=== PATIENT | female | born 1970 | race African-American/Black ===

== ENCOUNTER 2016-06-18 10:09 | Emergency (ER) | payer OTHER ==
[~2016-06-18] VITALS: Ht 167.6 cm; Wt 59.0 kg
[~2016-06-18 10:09] MED LIST: COLACE100 MG PO; HUMALOG100 UNIT/1 SUBQ; IRON325 PO; LANTUS SUBQ; UNICOMPLEX M TA1 TA1 PO
[2016-06-18] MEDS ORDERED: NOVOLOG100 UNIT/1 SUBQ (10:19)
[2016-06-18] MEDS ORDERED: LANTUS SUBQ (10:19)
[2016-06-18 11:03] LABS: ABSOLUTE NEUTROPHILS 2.7 thou/uL (1.4-8.2); BASOPHILS 0.9 % (0.0-2.0); HEMATOCRIT 30.7 % (37.0-47.0); HEMOGLOBIN 9.7 gm/dL (12.0-15.0); LYMPHOCYTES 20.8 % (24.0-44.0); MCH 26.3 pg (26.0-34.0); MCHC 31.6 g/dL (28.0-37.0); MCV 83.3 fL (80.0-100.0); MONOCYTES 5.4 % (1.0-8.0); PLATELET COUNT 306 thou/uL (150-400); POLYS 71.9 % (36.0-66.0); RBC 3.68 mil/uL (4.20-5.00); RDW 16.2 % (10.5-14.5); WBC 3.8 thou/uL (4.0-11.0)
[2016-06-18 11:05] LABS: MANUAL DIFF NO
[2016-06-18 11:17] LABS: CALCIUM 8.9 mg/dL (8.5-10.1); CREATININE 1.4 mg/dL (0.6-1.0)
== END 2016-06-18 14:16 | disposition home or self-care (01) ==
LOC: ER 10:09
PROVIDERS: Emergency Medicine
DX: E11.65 Type 2 diabetes mellitus with hyperglycemia (principal); Z79.4 Long term (current) use of insulin

== ENCOUNTER 2016-10-10 23:22 | Emergency (ER) | payer OTHER ==
[~2016-10-10] VITALS: Ht 170.2 cm; Wt 67.6 kg
[~2016-10-10 23:22] MED LIST changes: +NOVOLOG100 UNIT/1 SUBQ
== END 2016-10-11 01:04 | disposition home or self-care (01) ==
LOC: ER 23:22
DX: M25.571 Pain in right ankle and joints of right foot (principal); E10.9 Type 1 diabetes mellitus without complications; Z86.2 Personal history of diseases of the blood and blood-forming organs and certain disorders involving the immune mechanism; Z79.4 Long term (current) use of insulin

== ENCOUNTER 2016-10-19 21:52 | Emergency (ER) | payer OTHER ==
[~2016-10-19] VITALS: Ht 167.6 cm; Wt 67.6 kg
--- NOTE | ~2016-10-19 | EKG ---
[address] [address] ELECTROCARDIOGRAM REPORT Name: JAKUB GAXIOLA [facility] [id number] Admission: 10/19/16 Attend Phys: Discharge: 10/20/16 Date of : 68 Report #: [id number] THIS REPORT FOR: //name// [facility] ED Test Date: 2016-10-19 Test Time: 22:43:41 Pat Name: JAKUB GAXIOLA Department: Room: Gender: F Saddle Stitch Operator: SUSAN : 1970 Requested By: Conner Salas Order Number: [id number] MD: Jose A Damico Measurements Intervals [place] Rate: 101 P: 56 MO: 160 QRS: 59 QRSD: 80 T: 83 QT: 375 QTc: 487 Interpretive Statements Sinus tachycardia Borderline prolonged QT interval No previous ECG available for comparison Electronically Signed On 10-21-2016 12:55:00 CDT by Jose A Damico [email or web address] <ELECTRONICALLY SIGNED> By: Jose A Damico MD, [facility] 10/21/16 1255 [id number] [id number] Jose A Damico MD, FACC /EPI
[2016-10-19 22:20] LABS: URINE BILIRUBIN NEGATIVE (Negative); URINE BLOOD 2+ (Negative); URINE COLOR YELLOW; URINE GLUCOSE-RANDOM* 3+ (Negative); URINE KETONES NEGATIVE (Negative); URINE LEUKOCYTES-REFLEX NEGATIVE (Negative); URINE PROTEIN (DIPSTICK) 3+ (Negative); URINE UROBILINOGEN 0.2 E.U./dl (0.2-1.0)
[2016-10-19 22:35] LABS: SQUAMOUS >10 Many /LPF (0-3)
[2016-10-19 22:36] LABS: CASTS None Seen /LPF (None Seen); CRYSTALS None Seen /LPF (None Seen); URINE WBC-REFLEX 0-5 Rare /HPF (0-5)
[2016-10-19 23:58] LABS: HEMATOCRIT 25.4 % (37.0-47.0); HEMOGLOBIN 8.3 gm/dL (12.0-15.0); MCH 26.3 pg (26.0-34.0); MCHC 32.8 g/dL (28.0-37.0); MCV 80.1 fL (80.0-100.0); RBC 3.16 mil/uL (4.20-5.00); RDW 18.2 % (10.5-14.5); WBC 11.2 thou/uL (4.0-11.0)
[2016-10-19 23:59] LABS: MANUAL DIFF YES
[2016-10-20 00:04] LABS: ANION GAP 6 mmol/L (7-16); BUN 10 mg/dL (7-18); CALCIUM 8.6 mg/dL (8.5-10.1); CHLORIDE 105 mmol/L (98-107); CO2 27 mmol/L (21-32); CREATININE 1.2 mg/dL (0.6-1.0); GLUCOSE 142 mg/dL (74-106); POTASSIUM 3.7 mmol/L (3.5-5.1); SODIUM 138 mmol/L (136-145)
[2016-10-20 00:13] LABS: ALBUMIN 2.4 g/dL (3.4-5.0); ALKALINE PHOSPHATASE 157 U/L (46-116); SGOT 22 U/L (15-37); SGPT 16 U/L (30-65); TOTAL BILIRUBIN 0.3 mg/dL (<0.1-1.0); TOTAL PROTEIN 6.9 g/dL (6.4-8.2); TROPONIN-I < 0.04 ng/mL (<0.04-0.07)
[2016-10-20] MEDS ORDERED: FLOMAX0.4 MG PO (00:16)
[2016-10-20] MEDS ORDERED: TRAMADOL 50 MG50 MG PO (00:16)
[2016-10-20] MEDS ORDERED: ZOFRAN ODT8 MG PO (00:16)
[2016-10-20 01:21] LABS: ABSOLUTE NEUTROPHILS 8.5 thou/uL (1.4-8.2); NUCLEATED RBCS 2 /100WBC; TOTAL CELL COUNT 100
[2016-10-20 01:24] LABS: ANISOCYTOSIS 2+
[2016-10-20 01:32] LABS: PLATELET COUNT ND thou/uL (150-400)
== END 2016-10-20 00:36 | disposition home or self-care (01) ==
LOC: ER 21:52
PROVIDERS: Emergency Medicine; Physician Assistant
DX: N20.0 Calculus of kidney (principal); D64.9 Anemia, unspecified; E10.9 Type 1 diabetes mellitus without complications; S72.91XA Unspecified fracture of right femur, initial encounter for closed fracture; F32.9 Major depressive disorder, single episode, unspecified; Z59.0 Homelessness; Z79.4 Long term (current) use of insulin; X58.XXXA Exposure to other specified factors, initial encounter; Y93.89 Activity, other specified; Y92.89 Other specified places as the place of occurrence of the external cause; Y99.8 Other external cause status

== ENCOUNTER 2016-11-22 01:09 | Emergency (ER) | payer OTHER ==
[~2016-11-22] VITALS: Ht 167.6 cm; Wt 67.6 kg
[~2016-11-22 01:09] MED LIST changes: +FLOMAX0.4 MG PO; +TRAMADOL 50 MG50 MG PO; +ZOFRAN ODT8 MG PO
== END 2016-11-22 03:33 | disposition home or self-care (01) ==
LOC: ER 01:09
DX: G89.29 Other chronic pain (principal); M25.561 Pain in right knee; E10.9 Type 1 diabetes mellitus without complications; F32.9 Major depressive disorder, single episode, unspecified; Z86.2 Personal history of diseases of the blood and blood-forming organs and certain disorders involving the immune mechanism

== ENCOUNTER 2017-03-02 20:36 | Emergency (ER) | payer OTHER ==
[~2017-03-02] VITALS: Ht 167.6 cm; Wt 64.4 kg
--- NOTE | ~2017-03-02 | EKG ---
[address] [address] ELECTROCARDIOGRAM REPORT Name: JAKUB GAXIOLA MARYCARMEN [facility] [id number] Admission: 03/02/17 Attend Phys: Discharge: 03/02/17 Date of : 68 Report #: [id number] THIS REPORT FOR: //name// [facility] ED Test Date: 2017-03-02 Test Time: 21:14:08 Pat Name: JAKUB GAXIOLA Department: Room: Gender: F Inserting Operator: MZOOK : 1970 Requested By: Conner Salas Order Number: [id number] MD: Sonny Waller Measurements Intervals [place] Rate: 86 P: 11 NV: 174 QRS: 16 QRSD: 85 T: 99 QT: 416 QTc: 498 Interpretive Statements Sinus rhythm Nonspecific T abnormalities, lateral leads ST elev, probable normal early repol pattern Borderline prolonged QT interval Compared to ECG 10/19/2016 22:43:41 T-wave abnormality now present ST (T wave) deviation now present Sinus tachycardia no longer present Electronically Signed On 03-02-2017 23:29:33 EXPORT FREIGHT CLERK by Sonny Waller [email or web address] <ELECTRONICALLY SIGNED> By: Sonny Waller MD 03/02/17 2329 13 13 Sonny Waller MD /EPI
[~2017-03-02 20:36] MED LIST changes: +ACCU-CHEK1 EACH SUBQ; +INSULIN SYRING SUBQ; +LISINOPRIL10 MG PO; +PEN NEEDLE1 EA10 SUBQ; +TEST STRIPS1 EACH SUBQ
[2017-03-02 21:52] LABS: HEMATOCRIT 32.7 % (37.0-47.0); HEMOGLOBIN 10.5 gm/dL (12.0-15.0); MCH 26.1 pg (26.0-34.0); MCV 81.5 fL (80.0-100.0); PLATELET COUNT 344 thou/uL (150-400); RBC 4.01 mil/uL (4.20-5.00); RDW 20.7 % (10.5-14.5); WBC 4.3 thou/uL (4.0-11.0)
[2017-03-02 22:01] LABS: ANION GAP 8 mmol/L (7-16); BUN 14 mg/dL (7-18); CALCIUM 9.2 mg/dL (8.5-10.1); CHLORIDE 99 mmol/L (98-107); CO2 27 mmol/L (21-32); CREATININE 1.6 mg/dL (0.6-1.0); GLUCOSE 480 mg/dL (74-106); POTASSIUM 4.4 mmol/L (3.5-5.1); SODIUM 134 mmol/L (136-145)
[2017-03-02 22:09] LABS: ALBUMIN 2.8 g/dL (3.4-5.0); MAGNESIUM 2.1 mg/dL (1.8-2.4); SGOT 34 U/L (15-37); SGPT 27 U/L (30-65); TOTAL BILIRUBIN 0.5 mg/dL (<0.1-1.0); TOTAL PROTEIN 8.6 g/dL (6.4-8.2); TROPONIN-I < 0.04 ng/mL (<0.06)
[2017-03-02 22:13] LABS: ABSOLUTE NEUTROPHILS 2.9 thou/uL (1.4-8.2); ANISOCYTOSIS 1+
[2017-03-02] MEDS ORDERED: TRAMADOL 50 MG50 MG PO (22:45)
[2017-03-02] MEDS ORDERED: CLONIDINE0.1 PO (22:45)
[2017-03-02] MEDS ORDERED: REGLAN 10 MG TA10 MG PO (22:45)
[2017-03-02 22:59] VITALS: BP 174/94
== END 2017-03-02 23:00 | disposition home or self-care (01) ==
LOC: ER 20:36
PROVIDERS: Emergency Medicine
DX: E10.43 Type 1 diabetes mellitus with diabetic autonomic (poly)neuropathy (principal); K31.84 Gastroparesis; I10 Essential (primary) hypertension; M25.561 Pain in right knee; F32.9 Major depressive disorder, single episode, unspecified; Z86.2 Personal history of diseases of the blood and blood-forming organs and certain disorders involving the immune mechanism

== ENCOUNTER 2018-02-21 23:06 | Emergency (ER) | payer OTHER ==
[~2018-02-21 23:06] MED LIST changes: +CLONIDINE0.1 PO; +REGLAN 10 MG TA10 MG PO
== END 2018-02-21 23:18 | disposition left against medical advice (07) ==
LOC: ER 23:06
DX: Z53.21 Procedure and treatment not carried out due to patient leaving prior to being seen by health care provider (principal)

== ENCOUNTER 2018-08-25 08:26 | Inpatient (IN) | payer OTHER ==
[~2018-08-25] VITALS: Ht 167.6 cm; Wt 65.8 kg
[2018-08-25 08:30] VITALS: BP 184/100
--- NOTE | 2018-08-25 09:28 | NUR ---
BLINDMAKER BRINGS PT BACK AND REPORTS UNABLE TO PREFORM CT R/T PT BEHAVIOR
[2018-08-25 09:32] LABS: BE(vivo) -7.3 mmol/L (-2 to +3); HCO3 19.4 mmol/L (22.0-26.0); PCO2 VENOUS 44.1 mmHg (41.0-51.0); PO2 VENOUS 50.6 mmHg (35.0-45.0)
[2018-08-25 09:35] LABS: ABSOLUTE NEUTROPHILS 5.2 thou/uL (1.4-8.2); BASOPHILS 0.3 % (0.0-2.0); EOSINOPHILS 0.5 % (0.0-3.0); HEMATOCRIT 30.6 % (37.0-47.0); HEMOGLOBIN 9.7 gm/dL (12.0-15.0); LYMPHOCYTES 9.3 % (24.0-44.0); MCH 28.5 pg (26.0-34.0); MCHC 31.6 g/dL (28.0-37.0); MCV 90.3 fL (80.0-100.0); MONOCYTES 6.4 % (1.0-8.0); PLATELET COUNT 226 thou/uL (150-400); POLYS 83.5 % (36.0-66.0); RBC 3.39 mil/uL (4.20-5.00); WBC 6.2 thou/uL (4.0-11.0)
[2018-08-25 09:48] LABS: ALBUMIN 3.7 g/dL (3.4-5.0); CALCIUM 9.7 mg/dL (8.5-10.1); CREATININE 6.8 mg/dL (0.6-1.0); POTASSIUM 4.8 mmol/L (3.5-5.1); TOTAL BILIRUBIN 0.4 mg/dL (<0.1-1.0); TOTAL PROTEIN 9.4 g/dL (6.4-8.2)
[2018-08-25 10:25] LABS: ANISOCYTOSIS 2+; PLATELET ESTIMATE NORMAL; SCHISTOCYTES 1+
[2018-08-25 15:42] VITALS: BP 183/90
[2018-08-25 16:04] VITALS: BP 171/88
[2018-08-25 17:00] VITALS: BP 193/104
--- NOTE | 2018-08-25 17:29 | NUR ---
ARRIVED ON 3W VIA CART FROM ED. APPEARS ANXIOUS AND PARANOID. STATING SHE DOES NOT WANT TO STAY AND WANTS TO LEAVE AMA. REQUESTING WC SO SHE CAN LEAVE AMA. VERY ANGRY YELLING OUT THAT SHE DOES NOT WANT HER MOTHER IN THE ROOM. MOTHER MOVED TO WAITING ROOM.
== END 2018-08-25 18:39 | disposition left against medical advice (07) | DRG 637 ==
LOC: ER 08:26 → 3W 15:07 → EROBS 15:07 → 3W 16:16
PROVIDERS: Emergency Medicine; ADMIT Hospitalist
DX: E10.65 Type 1 diabetes mellitus with hyperglycemia (principal); N18.6 End stage renal disease; G93.40 Encephalopathy, unspecified; E10.22 Type 1 diabetes mellitus with diabetic chronic kidney disease; F32.9 Major depressive disorder, single episode, unspecified; Z99.2 Dependence on renal dialysis; Z99.3 Dependence on wheelchair; Z91.15 Patient's noncompliance with renal dialysis; Z79.4 Long term (current) use of insulin; Z79.899 Other long term (current) drug therapy; Z88.0 Allergy status to penicillin
CPT/HCPCS: 10879

== ENCOUNTER 2018-10-15 12:22 | Inpatient (IN) | payer OTHER ==
[~2018-10-15] VITALS: Ht 167.6 cm; Wt 72.6 kg
--- NOTE | ~2018-10-15 | HC ---
[facility] [place] [address] CONSULTATION Name: JAKUB GAXIOLA Room #: 456-P ADM IN M.R.#: [id number] Admission: 10/15/18 Attend Phys: Jax Ramirez MD Discharge: Date of : 68 Report #: [id number] THIS REPORT FOR: //name// CC: FAM unknown Sonny Christin Naranjo HISTORY OF PRESENT ILLNESS: This lady was admitted and there were concerns about end-stage renal disease; however, the plan to keep her in the hospital ultimately seems like it came down to an elevated troponin. It is unclear if she has had dialysis and she left [facility] against medical advice last week. She essentially eloped. I am aware of this because we were physicians involved in the case. The patient had had multiple admissions to [facility] and her compliance has fluctuated. It appears she has not been able to affiliate with an outpatient dialysis clinic. She is essentially undomiciled and she and her mother have stayed in hotels, and when she is admitted to the hospital, they have stayed there. The patient has longstanding delusions involving the FBI and different scenarios during which she has been tormented. However, she also seems to have longstanding problems with adherence and fluctuating insight into her medical problems. Earlier this year, she was almost rejecting treatment at times. Now, she is more adherent with dialysis, but not necessarily transfusions even when the hemoglobin drops significantly. Earlier this year, she was dismissing the history of cancer or need for treatment, but now, she has been more forthcoming and realistic in this area as well. Today, she tells me that she is still "deciding" about the blood transfusion. She hopes that "My children are safe and they don't have to deal with diabetes like I have, and I hope the FBI leaves them alone, I never should have gone with a man." PAST PSYCHIATRIC HISTORY: The patient has psychiatric history and diagnoses have included major depression, schizophrenia and delusional disorder. CURRENT MEDICATIONS: Include vitamin E 400 units daily, Lantus insulin 10 units at bedtime, vitamin B 500 mcg daily, ferrous sulfate 325 daily, Protonix 40 daily and sliding scale insulin. PAST MEDICAL HISTORY: End-stage renal disease, hypertension, elevated troponin and history of cancer. SOCIAL HISTORY: Undomiciled. She and her elderly mother have stayed in either hospitals (when admitted) or stay in a hotel. She has been adamant that she does not want to go to a long-term. No active substance abuse issues. MENTAL STATUS EXAM: -[place] female, casually dressed, depressed mood, [address] [place] [address] CONSULTATION Name: JAKUB GAXIOLA Room #: 456-P ADM IN M.R.#: [id number] Admission: 10/15/18 Attend Phys: Jax Ramirez MD Discharge: Date of : 68 Report #: [id number] restricted affect, circumstantial thought process. She has some persecutory delusions, no suicidal or homicidal ideation. Insight and judgment impaired. DIAGNOSES: Major depressive disorder, recurrent, moderate, likely schizophrenia versus delusional disorder. RECOMMENDATIONS: The total picture of the severity of the delusions, the fact that the patient's lifestyle seems influenced and her inability to manage her medical problems, all to me are more suggestive of underlying schizophrenia rather than delusional disorder. Perhaps, there are some newer stressors, and certainly, her recent health problems would be enough under which she is less able to compensate for her underlying delusions. Honestly, for a 48-year-old female, if her medical problems were not so severe, she might rarely require hospital attention at all. I would start risperidone and she had become adherent to this, mood stabilizer/"antidepressant" when she left [facility]. Hope that we can encourage her to start this medicine again. The corcoran to her leaving against medical advice or being nonadherent with treatment seems to come down to the acuity of her medical problems and her insight into them and whether she verbalizes a plan to manage them outpatient or not. In the last month, at [facility], she seemed to have demonstrated sufficient appreciation of her medical problems as well as a basic understanding of the risks and benefits that she did have capacity to make her own decisions. Now, unfortunately, she appears to not have been that reliable over the last week. In any case, at this point, she is not threatening to leave [place]. She wants to restart her medication and seems to be open to or at least rethinking the possibility of a transfusion. By: 1417 2238 Jacob Parada MD /freda
[2018-10-15 12:43] VITALS: BP 173/94
[2018-10-15] MEDS ORDERED: ASPIR 8181 MG PO (12:52)
[2018-10-15] MEDS ORDERED: HUMULIN N100 UNIT/3 SUBQ (12:53)
[2018-10-15] MEDS ORDERED: B COMPLEX1 EACH PO (12:54)
[2018-10-15] MEDS ORDERED: VITAMIN E400 UNIT PO (12:54)
[2018-10-15] MEDS ORDERED: HYDRALAZINE 2525 MG PO (12:55)
[2018-10-15 13:04] LABS: ABSOLUTE NEUTROPHILS 5.8 thou/uL (1.4-8.2); BASOPHILS 0.9 % (0.0-2.0); EOSINOPHILS 2.2 % (0.0-3.0); HEMATOCRIT 22.8 % (37.0-47.0); HEMOGLOBIN 7.6 gm/dL (12.0-15.0); LYMPHOCYTES 10.8 % (24.0-44.0); MCH 29.5 pg (26.0-34.0); MCHC 33.3 g/dL (28.0-37.0); MCV 88.4 fL (80.0-100.0); MONOCYTES 7.3 % (1.0-8.0); PLATELET COUNT 229 thou/uL (150-400); POLYS 78.8 % (36.0-66.0); RBC 2.58 mil/uL (4.20-5.00); RDW 17.4 % (10.5-14.5); WBC 7.3 thou/uL (4.0-11.0)
[2018-10-15 14:08] LABS: ALBUMIN 3.3 g/dL (3.4-5.0); CALCIUM 8.5 mg/dL (8.5-10.1); CREATININE 9.1 mg/dL (0.6-1.0); TOTAL BILIRUBIN 0.4 mg/dL (<0.1-1.0); TOTAL PROTEIN 8.4 g/dL (6.4-8.2)
[2018-10-15 14:09] LABS: POTASSIUM 6.6 mmol/L (3.5-5.1)
--- NOTE | 2018-10-15 15:18 | EKG ---
[facility] [place] [place] [address] ELECTROCARDIOGRAM REPORT Name: JAKUB GAXIOLA Room #: [facility]#: [id number] Admission: 10/15/18 Attend Phys: Discharge: Date of : 68 Report #: [id number] THIS REPORT FOR: //name// [facility] ED Test Date: 2018-10-15 Test Time: 12:50:13 Pat Name: JAKUB GAXIOLA Department: Room: Gender: F Manager Electronic: CORTNEY : 1970 Requested By: Adela Buenrostro Order Number: [id number] MD: Jose A Damico Measurements Intervals [place] Rate: 106 P: 56 IN: 153 QRS: 38 QRSD: 117 T: 138 QT: 364 QTc: 484 Interpretive Statements Sinus tachycardia Probable LVH with secondary repol abnrm Borderline prolonged QT interval Compared to ECG 03/02/2017 21:14:[address] and T wave abnormality is more pronounced Electronically Signed On 10-15-2018 15:17:44 CDT by Jose A Damico [email or web address] <ELECTRONICALLY SIGNED> By: Jose A Damico MD, [facility] 10/15/18 1517 1250 1250 Jose A Damico MD, [facility] /EPI
[2018-10-15 18:18] VITALS: BP 170/94
[2018-10-15 23:42] VITALS: BP 169/99
[2018-10-16] VITALS (8 sets, daily range): BP systolic 154–181; BP diastolic 82–110
--- NOTE | 2018-10-16 03:30 | NUR ---
PATIENT ARRIVED ON UNIT AT 2024, ACCOMPANIED BY DIALYSIS PERSONEL AND MOTHER. IV IN LAC. ACCUCHECK AC & HS, WAS 95 AT 2300. NO COVERAGE NEEDED. WHEELCHAIR BOUND BUT IS ABLE TO STAND AND PIVOT. SLEPT THROUGH MOST OF ADMIT INTERVIEW. HAS R CHEST TESSIO FOR DIALYSIS. NO C/OPAIN. MOTHER AT BEDSIDE.
[2018-10-16 04:07] LABS: GLYCOHEMOGLOBIN (HGB A1C) 9.3 % (4.8-5.6)
[2018-10-16 10:53] LABS: EOSINOPHILS 0.5 % (0.0-3.0); HEMATOCRIT 20.4 % (37.0-47.0); HEMOGLOBIN 6.6 gm/dL (12.0-15.0); MCH 29.2 pg (26.0-34.0); RBC 2.27 mil/uL (4.20-5.00)
[2018-10-16 10:55] LABS: ABSOLUTE NEUTROPHILS 4.3 thou/uL (1.4-8.2); BASOPHILS 0.4 % (0.0-2.0); LYMPHOCYTES 9.1 % (24.0-44.0); MCHC 32.5 g/dL (28.0-37.0); MCV 89.6 fL (80.0-100.0); PLATELET COUNT 189 thou/uL (150-400); RDW 17.7 % (10.5-14.5); WBC 5.2 thou/uL (4.0-11.0)
[2018-10-16 11:05] LABS: ALBUMIN 2.8 g/dL (3.4-5.0); CALCIUM 8.3 mg/dL (8.5-10.1); MAGNESIUM 1.9 mg/dL (1.8-2.4); PHOSPHORUS 5.6 mg/dL (2.5-4.9)
[2018-10-16 11:06] LABS: CHOLESTEROL 153 mg/dL (<200); CREATININE 4.1 mg/dL (0.6-1.0); HDL CHOLESTEROL 57 mg/dL (>40); LDL CHOLESTEROL 84 mg/dL (<100); POTASSIUM 4.7 mmol/L (3.5-5.1); TC:HDL 2.7 Ratio (Not establshd); TRIGLYCERIDE 62 mg/dL (<150); VLDL 12 mg/dL (<40)
--- NOTE | 2018-10-16 13:06 | NUR ---
pt in dialysis at this time. pt informed of need for blood transfusion, pt is refusing to sign consent to transfuse. call placed to dr. maier. internet security specialist aware of pt's refusal. blood bank notified, informed rn that blood will be good for 3 days. unable to find the pt's mother to inform her for pt's refusal. received call from dr. leavitt re: consult.
--- NOTE | 2018-10-16 14:14 | 2DMMODE ---
[place] [address] [address] [facility] [place] [address] 2 D/M-MODE ECHOCARDIOGRAM Name: JAKUB GAXIOLA MARYCARMEN Room #: 360-P ADM IN M.R.#: [id number] Admission: 10/15/18 Attend Phys: Jax Ramirez MD Discharge: Date of : 68 Date of Service: 10/16/18 1414 Report #: [id number] THIS REPORT FOR: //name// APPROVED REPORT Study performed: 10/16/2018 08:49:26 EXAM: Comprehensive 2D, Doppler, and color-flow Echocardiogram Patient Location: Bedside Room #: 360 Status: on-call BSA: 1.82 HR: 113 bpm BP: 181/110 mmHg Rhythm: Tachycardia Other Information Study Quality: Adequate Technically limited study due to noncompliant/combative patient. Not all measrements taken. Indications Chest pain, elevated troponin. Hx: Cardiomyopathy (40-45%), ESRD, DM, HTN, HLP. 2D Dimensions RVDd: 37.03 mm IVSd: 14.07 (7-11mm) LVOT Diam: 18.75 (18-24mm) LVDd: 42.55 mm PWd: 14.13 (7-11mm) LVDs: 33.05 (25-40mm) Aortic Root: 27.89 mm Volumes Left Atrial Volume (Systole) Single Plane 4CH: 41.82 mL Single Plane 2CH: 44.28 mL LA ESV Index: 26.00 mL/m2 Aortic Valve LVOT Max P.87 mmHg LVOT Max V: 1.31 m/s Tricuspid Valve TR Peak Aldo.: 3.86 m/s RAP Estimate: 10.00 mmHg TR Peak Gr.: 59.69 mmHg [facility] [place] [address] [place] [address] 2 D/M-MODE ECHOCARDIOGRAM Name: JAKUB GAXIOLA Room #: [facility] ADM IN .R.#: [id number] Admission: 10/15/18 Attend Phys: Jax Ramirez MD Discharge: Date of : 68 Date of Service: 10/16/18 1414 Report #: [id number] PA Pressure: 70.00 mmHg Left Ventricle The left ventricle is normal size. Moderate concentric left ventricular hypertrophy. Left ventricular systolic function is mildly decreased. LVEF is 50-55% This study is not technically sufficient to allow evaluation of the LV diastolic function. Right Ventricle The right ventricle is normal size. Right ventricle is hypertrophied. The right ventricular systolic function is normal. Atria The left atrium size is normal. The right atrium size is normal. Aortic Valve The Aortic valve is mildly sclerotic. Trace aortic regurgitation. Trace aortic regurgitation. Trace to mild aortic regurgitation. Mild aortic regurgitation. Mitral Valve The mitral valve is normal in structure. Mild mitral regurgitation. Tricuspid Valve The tricuspid valve is normal in structure. Moderate tricuspid regurgitation. Moderate to severe pulmonary hypertension with an estimated PAP of 70mmHg. Unable to assess PA pressure. Pulmonic Valve Pulmonic valve is not well visualized. Great Vessels The aortic root is normal in size. IVC is dilated and collapses <50% with inspiration. Pericardium Small pericardial effusion. Left pleural effusion. <Conclusion> The left ventricle is normal size. Moderate concentric left ventricular hypertrophy. Left ventricular systolic function is mildly decreased. LVEF is 50-55% [facility] [address] [place] [address] 2 D/M-MODE ECHOCARDIOGRAM Name: JAKUB GAXIOLA MARYCARMEN Room #: 360-P [facility] IN M.R.#: [id number] Admission: 10/15/18 Attend Phys: Jax Ramirez MD Discharge: Date of : 68 Date of Service: 10/16/18 1414 Report #: [id number] The right ventricle is normal size. The left atrium size is normal. The right atrium size is normal. The Aortic valve is mildly sclerotic. Trace aortic regurgitation. The tricuspid valve is normal in structure. Moderate tricuspid regurgitation. Moderate to severe pulmonary hypertension with an estimated PAP of 70mmHg. Unable to assess PA pressure. Small pericardial effusion. <ELECTRONICALLY SIGNED> By: Sonny Waller MD 10/16/18 1414 1414 1414 Sonny Waller MD /MARIANN
[2018-10-16] MEDS ORDERED: ACETAMINOPHEN325 M1 PO (15:40)
[2018-10-16] MEDS ORDERED: LISINOPRIL10 MG PO (15:40)
[2018-10-16] MEDS ORDERED: HYDRALAZINE 2525 MG PO (15:40)
[2018-10-16] MEDS ORDERED: HUMALOG100 UNIT/1 SUBQ (15:40)
[2018-10-16] MEDS ORDERED: RISPERDAL 1 MG T1 MG PO (15:40)
--- NOTE | 2018-10-16 21:30 | NUR ---
NURSE ATTEMPTED TO DISCHARGE PATIENT PER DOCTOR ORDER AT BEGINNING OF SHIFT. PATIENT WAS ADAMANT THAT SHE "NEEDS ONE MORE DAY" AND REFUSES TO SIGN MEDICARE DISCHARGE FORM. NURSE INSTRUCTED PATIENT AND MOTHER THAT THEY NEEDED TO FORMALLY APPEAL DISCHARGE IN ORDER TO STAY. NURSE WATCHED MOTHER CALLED AND LEFT MESSAGE CONCERNING DAUGHTER. NURSE INSTRUCTED PATIENT AND MOTHER THAT THEY NEEDED TO ANSWER WHEN CALLED BACK IN ORDER TO FORMALLY APPEAL DISCHARGE WITH BOTH IN AGREEMENT TO UNDERSTANDING THE NEXT STEP OF THE PROCESS. NURSE WAS ABLE TO GET TELE DISCONTINUED FROM SECOND CRUSHER WITH THE THOUGHT THAT PATIENT WOULD BE TRANSFERRED TO MED SURG UNIT. PATIENT REFUSES TO TAKE SCHEDULED MEDICATIONS AND IS SO NON COMPLIANT WITH TREATMENT.
--- NOTE | 2018-10-16 23:25 | NUR ---
ARRIVAL PT ARRIVED TO ROOM 456 VIA BED FROM [facility] STATUS CHANGE TO MED SURG. PT REPORTED HEADACHE AND STATED SHE WANTED A PAIN PATCH OR SOMETHING IV AND I TOLD HER SHE ONLY HAD TYLENOL ORDERED AND SHE REFUSED TO COOPERATE WITH TAKING TEMP OR RESPONDING TO QUESTIONS.
[2018-10-17 05:16] LABS: ALBUMIN 3.1 g/dL (3.4-5.0); CALCIUM 8.8 mg/dL (8.5-10.1); PHOSPHORUS 4.8 mg/dL (2.5-4.9); POTASSIUM 4.1 mmol/L (3.5-5.1)
[2018-10-17 05:17] LABS: CREATININE 2.8 mg/dL (0.6-1.0)
--- NOTE | 2018-10-17 09:36 | NUR ---
PT WAS ASLEEP BUT AWOKEN TO HER NAME. PT WHEN SPOKEN TO OR ASKED QUESTIONS YELLS OUT. PT REFUSED ALL MORNING MEDICATIONS AND STATED "GET AWAY FROM ME". PT SITITNG UPRIGHT EATING BREAKFAST. PT'S ELDERLY MOTHER ASLEEP IN CHAIR NEXT TO PT. PT REPEATING "I HOPE THEY KEEP ME ONE MORE DAY". PT DID ALLOW RN TO AUSCULTATE LUNGS AND HEART BUT THEN SAID "ARE YOU DONE, LEAVE ME ALONE"
[2018-10-17 09:52] VITALS: BP 169/92
--- NOTE | 2018-10-17 10:44 | NUR ---
PROGRESS PT REFUSED MEDS TALKED TO HERSELF AND MOTHER VSS WOULD REQUEST PAIN MEDICATION THEN WHEN OFFERED TYLENOL WOULD REFUSE. PT ORIENTATION IS LABILE ONE MOMENT APPEARS A/OX 4 NEXT SHE IS HAVING AN IMAGINARY WEDDING. MOTHER AT BEDSIDE ALSO SEEMS CONFUSED CAME OUT 3 TIMES WITHIN 10 MINUTES REQUESTING WARM BLANKETS AND WOULD SAY SHE DIDN'T GET THE PREVIOUS 2. CONTINUE TO MONITOR.
--- NOTE | 2018-10-17 11:38 | NUR ---
1138 SPOKE WITH TIMUR UPHOLSTERY TECH REGARDING PT D/C STATUS. CASE MANAGEMENT IS AWARE OF PT REFUSING TO D/C EVOKING HER MEDICARE RIGHTS. UPHOLSTERY TECH STATED MEDICARE WILL BE NOTIFIED FIRST THING THURSDAY MORNING AND CASE MANAGEMENT WILL HOTLINE PT'S MOTHER REQUESTED BY PHYSICIAN.
[2018-10-17 16:25] VITALS: BP 157/87
[2018-10-17 19:58] VITALS: BP 168/87
--- NOTE | 2018-10-18 01:29 | NUR ---
ASSUMED CARE OF PT @1900. PT A&OX4. DRESSING ON L FOOT; CLEAN, DRY AND INTACT. PT DECLINED HS MEDICATIONS. ONLY ACCEPTED HER LONG ACTING INSULIN. PT MOTHER IS AT BEDSIDE AND SHE IS PT MIXING ENGINEER. PT IS WC BOUND. PT LET ME REPOSITION HER. TRIED TO FLUSH PT IV BUT IT INFILTRATED. TOOK IV OUT BUT PT REFUSED REINSERTION. CALL BURNETT WITHIN REACH. WILL CONTINUE TO MONIOR
[2018-10-18 03:46] VITALS: BP 173/85
--- NOTE | 2018-10-18 10:34 | NUR ---
cm had voice message from [facility] # [phone], would like updated information and dcp when it is made.
--- NOTE | 2018-10-18 11:37 | NUR ---
ASSUMED CARE AT 0700, PATIENT HAD GONE TO DIALYSIS BEFORE THIS NURSE STARTED SHIFT.
--- NOTE | 2018-10-18 14:36 | NUR ---
PATIENT CAME BACK AT 1300, REFUSED ALL HER MEDS, BP HIGH, PRN HYDRALZINE GIVEN FOR HGH BP. BLOOD SUGAR WAS 310, 9 UNITS OF INSULIN GIVEN. DISCHARGE ORDER RECEIVED, DR PIRES WANTS THE PT TO BE EXCORTED OUT OF THE HOSPITAL. WILL WORK ON DISCHARGE AFTER TETRYL DISSOLVER OPERATOR CARLENE IS DONE TALKING TO THE PT ABOUT DIALYSIS SET UP.
--- NOTE | 2018-10-18 14:44 | NUR ---
PT ADMITTED RELATED TO RENAL FUNCTION, ELEVATED TROPONIN. CM REVIEWED CHART AND SPOKE WITH CARE TEAM. CM MET WITH PT AND HER MOTHER SILVESTRE AT BEDSIDE THIS DAY. PT IS A&O X4. CM ROLE INTRODUCED. PT AND TREVIN INDICATED THAT THEY HAD BEEN STAYING WITH FRIENDS AND GOING FROM HOTEL TO HOTEL PATTERN STORAGE CLERK. PT INDICATED SHE USED A WHEELCHAIR TO ASSIST WITH MOBILITY PATTERN STORAGE CLERK AND HAD BEEN ABLE TO TRANSFER HERSELF WITH HER MOTHER PROVIDING SBA PATTERN STORAGE CLERK. PT INDICATED OTHER HOSPITALS HAD TRIED TO ESTABLISH HER WITH OP HD IN THE PAST AND THAT SHE ISN'T ESTABLISHED WIHT A CLINIC AT THIS TIME. PT AND MOTHER INDICATED THAT THEY PLAN TO GO TO A HOTEL UPON DISHCARGE BUT WOULDN'T TELL CM WHICH HOTEL THEY WERE PLANNING TO GO TO. NURSE HAD HOTLINED PT AND MOTHER AND ANAT CERNA WITH [facility] CME AND MET WITH THEM TODAY. PT TOLD ANAT THAT THE WOMEN IN THE ROOM WAS A WORSHIP VISITOR NAMES LOWELL. CM WENT IN ROOM AND CONFIRMED WITH ANAT THAT THE WOMEN VISITING IN PT'S ROOM HAD CONFIRMED THAT HER NAME WAS SILVESTRE AND PT REFERS TO HER MOM. CM SENT REFERRAL [facility] [address] [facility] [address] TODAY AND ROSANGELA INDICATED THAT THEY HAD RECENTLY DENIED PT ADMISSION [facility] ON 10/08. CM SENT REFERRAL TO [facility] BUT HAVEN'T HEARD BACK YET. CARE TEAM INDICATED THAT PT WAS MEDICALLY STABLE TO DC TODAY AND TO CONTINUE TO FOLLOW UP FOR DIALYSIS IN LOCAL ERS WE AREN'T ABLE TO FIND A CLINIC TO ACCEPT HER. CM NOTIFIED PT AND HER MOTHER THAT CARE TEAM INDICATED SHE IS MEDICALLY STABLE TO DC TODAY AND THAT THEY HAD ORDERED HOME HEALTH PT, OT, ST, NURSING, AND PROFILE TRIMMER AND ASKED IF CM COULD HAVE THE ADDRESS THEY WERE GOING TO UPON DC TO SET THOSE SERVICES UP. PT INDICATED NO ONE COULD COME TO HER HOUSE THAT IT WAS TOO CROWDED. SHE ALSO INDICATED THAT SHE WANTED TO DC TOMORROW. CM NOTIFIED CM QUICK MIXER OPERATOR. CM QUICK MIXER OPERATOR CAME AND SPOKE WITH PT AND HER MOTHER AND IT WAS INDICATED THAT PT WOULD DC AND NEEDED A CAB VOUCHER. CM PROVIDED CAB VOUCHER TO HER NURSE. PT REFUSED HH SERVICES AND WILL NEED TO CONTINUE TO SEEK DIALYSIS SERVICES AT LOCAL ER'S. NO OTHER CM INTERVENTION INDICATED. CASE CLOSED.
[2018-10-18 14:51] VITALS: BP 178/97
--- NOTE | 2018-10-18 18:18 | NUR ---
THIS NURSE WENT TO GIVE PATIENT DISCHARGE PAPERWORK AND INFORMED ABOUT CAB VOUCHER. PT INDICATED THAT SHE WILL NOT BE ABLE TO LEAVE IN A CAB AND WANTS WHEELCHAIR VAN. SEASONAL CUSTOMER SERVICE ASSOCIATE CARLENE WAS CALLED, AND SHE CALLED BACK INDICATING THAT [facility] CAN DROP HEWR OFF. [facility] WAS CALLED AND TRANSPORTATION IS SET UP FOR 1829. PATIENT WAS GIVEN ALL THE DISCHARGE PAPER WORK AND SCRIPT. WILL CONTINUE TO ASSIST WITH DISCHARGE.
== END 2018-10-18 18:47 | disposition home or self-care (01) | DRG 640 ==
LOC: ER 12:22 → 4W 16:48 → EROBS 16:48 → 3W 21:10 → 4W 10-16 22:31
PROVIDERS: Internal Medicine Nephrology; Nurse Practitioner; Nurse Practitioner Family; ADMIT Internal Medicine
PROC: 5A1D70Z Performance of Urinary Filtration, Intermittent, Less than 6 Hours Per Day (ICD-10-PCS; principal; 2018-10-15)
DX: E87.5 Hyperkalemia (principal); N18.6 End stage renal disease; N17.9 Acute kidney failure, unspecified; I12.0 Hypertensive chronic kidney disease with stage 5 chronic kidney disease or end stage renal disease; K21.9 Gastro-esophageal reflux disease without esophagitis; F31.9 Bipolar disorder, unspecified; E78.5 Hyperlipidemia, unspecified; F20.9 Schizophrenia, unspecified; D63.1 Anemia in chronic kidney disease; G40.909 Epilepsy, unspecified, not intractable, without status epilepticus; E10.22 Type 1 diabetes mellitus with diabetic chronic kidney disease; Z79.899 Other long term (current) drug therapy; Z88.8 Allergy status to other drugs, medicaments and biological substances; Z85.3 Personal history of malignant neoplasm of breast; Z99.2 Dependence on renal dialysis
CPT/HCPCS: 10045; 10879; 32100

== ENCOUNTER 2019-02-02 22:13 | Emergency (ER) | payer OTHER ==
[~2019-02-02] VITALS: Ht 167.6 cm; Wt 64.4 kg
[~2019-02-02 22:13] MED LIST changes: +ACETAMINOPHEN325 M1 PO; +ASPIR 8181 MG PO; +B COMPLEX1 EACH PO; +HUMULIN N100 UNIT/3 SUBQ; +HYDRALAZINE 2525 MG PO; +RISPERDAL 1 MG T1 MG PO; +VITAMIN E400 UNIT PO
[2019-02-03 00:20] LABS: HEMOGLOBIN 8.8 gm/dL (12.0-15.0); MCHC 31.5 g/dL (28.0-37.0); PLATELET COUNT 316 thou/uL (150-400); RBC 3.04 mil/uL (4.20-5.00); RDW 18.6 % (10.5-14.5); WBC 6.6 thou/uL (4.0-11.0)
[2019-02-03 00:24] LABS: CREATININE 4.8 mg/dL (0.6-1.0); MAGNESIUM 1.9 mg/dL (1.8-2.4); POTASSIUM 5.3 mmol/L (3.5-5.1)
[2019-02-03 00:47] VITALS: BP 154/82
[2019-02-03 01:01] LABS: ABSOLUTE NEUTROPHILS 5.1 thou/uL (1.4-8.2)
[2019-02-03 01:02] LABS: ANISOCYTOSIS 2+; PLATELET ESTIMATE NORMAL; POIKILOCYTOSIS 2+
--- NOTE | 2019-02-03 08:34 | EKG ---
[address] [address] ELECTROCARDIOGRAM REPORT Name: JAKUB GAXIOLA [id number] Admission: 02/02/19 Attend Phys: Discharge: 02/03/19 Date of : 68 Report #: [id number] THIS REPORT FOR: //name// [facility] ED Test Date: 2019-02-03 Test Time: 00:38:42 Pat Name: JAKUB GAXIOLA Department: Room: Gender: F Kitchenwhere Maker: ARTUR : 1970 Requested By: Faustino Shaw Order Number: [id number] MD: Sonny Waller Measurements Intervals [place] Rate: 86 P: 60 AK: 174 QRS: 40 QRSD: 86 T: 136 QT: 404 QTc: 484 Interpretive Statements Sinus rhythm Probable LVH with secondary repol abnrm Compared to ECG 10/15/2018 12:50:13 Sinus tachycardia no longer present Electronically Signed On 02-03-2019 8:33:54 BUCKLE ASSEMBLER by Sonny Waller [email or web address] <ELECTRONICALLY SIGNED> By: Sonny Waller MD 02/03/19 0833 Sonny Waller MD /RUIZ
== END 2019-02-03 01:13 | disposition home or self-care (01) ==
LOC: ER 22:13
PROVIDERS: Emergency Medicine
DX: R41.82 Altered mental status, unspecified (principal); E10.22 Type 1 diabetes mellitus with diabetic chronic kidney disease; N18.6 End stage renal disease; D64.9 Anemia, unspecified; Z88.8 Allergy status to other drugs, medicaments and biological substances; Z79.899 Other long term (current) drug therapy; Z79.82 Long term (current) use of aspirin; Z79.4 Long term (current) use of insulin; Z99.2 Dependence on renal dialysis

== ENCOUNTER 2019-05-13 13:31 | Emergency (ER) | payer OTHER ==
[~2019-05-13] VITALS: Ht 167.6 cm; Wt 59.1 kg
[2019-05-13 15:12] LABS: HEMATOCRIT 28.1 % (37.0-47.0); HEMOGLOBIN 8.9 gm/dL (12.0-15.0); MCH 28.2 pg (26.0-34.0); MCHC 31.6 g/dL (28.0-37.0); MCV 89.5 fL (80.0-100.0); PLATELET COUNT 299 thou/uL (150-400); RBC 3.14 mil/uL (4.20-5.00); WBC 5.7 thou/uL (4.0-11.0)
[2019-05-13 15:16] LABS: ANION GAP 15 mmol/L (7-16); BUN 55 mg/dL (7-18); CALCIUM 11.4 mg/dL (8.5-10.1); CHLORIDE 90 mmol/L (98-107); CO2 23 mmol/L (21-32); CREATININE 6.9 mg/dL (0.6-1.0); GLUCOSE 266 mg/dL (74-106); POTASSIUM 5.8 mmol/L (3.5-5.1); SODIUM 128 mmol/L (136-145)
[2019-05-13 15:26] LABS: ALBUMIN 3.1 g/dL (3.4-5.0); DIRECT BILIRUBIN 0.2 mg/dL (<0.1-0.2); SGOT 60 U/L (15-37); SGPT 17 U/L (30-65); TOTAL PROTEIN 8.4 g/dL (6.4-8.2); TROPONIN-I <0.06 ng/mL (<0.06)
[2019-05-13 15:48] LABS: ABSOLUTE NEUTROPHILS 3.9 thou/uL (1.4-8.2); ANISOCYTOSIS 1+
--- NOTE | 2019-05-13 16:24 | EKG ---
[facility] [place] [address] ELECTROCARDIOGRAM REPORT Name: JAKUB GAXIOLA Room #: [facility]#: [id number] Admission: 05/13/19 Attend Phys: Discharge: Date of : 68 Report #: [id number] THIS REPORT FOR: cc: [facility] - Clinic physician unknown [facility] - Clinic physician unknown Bharath Toro MD ~ THIS REPORT FOR: //name// [facility] ED Test Date: 2019-05-13 Test Time: 14:18:48 Pat Name: JAKUB GAXIOLA Department: Room: Gender: F Instantizer Operator: SHAREE : 1970 Requested By: Melania Mccullough Order Number: [id number] MD: Bharath Toro Measurements Intervals [place] Rate: 69 P: 53 MN: 203 QRS: 28 QRSD: 99 T: 129 QT: 443 QTc: 475 Interpretive Statements Sinus rhythm Borderline prolonged [place] interval Nonspecific T-wave abnormalities Compared to ECG 02/03/2019 00:38:42 T-wave abnormality now present Possible ischemia now present Electronically Signed On 05-13-2019 16:23:04 CDT by Bharath Toro [email or web address] <ELECTRONICALLY SIGNED> By: Bharath Toro MD 05/13/19 1623 141 17 Bharath Toro MD /RUIZ
[2019-05-13 22:15] VITALS: BP 137/67
[2019-05-15 06:07] LABS: HEPATITIS B SURFACE AG Negative (Negative)
== END 2019-05-13 23:09 | disposition home or self-care (01) ==
LOC: ER 13:31
PROVIDERS: Nurse Practitioner
DX: E10.22 Type 1 diabetes mellitus with diabetic chronic kidney disease (principal); N18.6 End stage renal disease; Z99.2 Dependence on renal dialysis; Z91.15 Patient's noncompliance with renal dialysis; R07.81 Pleurodynia; R06.02 Shortness of breath; Z79.899 Other long term (current) drug therapy; Z79.82 Long term (current) use of aspirin; Z79.4 Long term (current) use of insulin
CPT/HCPCS: 32100

== ENCOUNTER 2019-05-14 04:44 | Emergency (ER) | payer OTHER ==
[~2019-05-14] VITALS: Ht 167.6 cm; Wt 59.1 kg
[2019-05-14 06:13] LABS: CALCIUM 9.7 mg/dL (8.5-10.1); POTASSIUM 5.6 mmol/L (3.5-5.1)
[2019-05-14 06:15] LABS: CREATININE 3.9 mg/dL (0.6-1.0)
[2019-05-14 06:19] LABS: TOTAL BILIRUBIN 0.8 mg/dL (<0.1-1.0); TOTAL PROTEIN 8.3 g/dL (6.4-8.2)
[2019-05-14 09:25] VITALS: BP 156/72
--- NOTE | 2019-05-14 09:59 | EKG ---
[facility] [place] [address] ELECTROCARDIOGRAM REPORT Name: JAKUB GAXIOLA Room #: DEP [facility]#: [id number] Admission: 05/14/19 Attend Phys: Discharge: 05/14/19 Date of : 68 Report #: [id number] THIS REPORT FOR: cc: [facility] - Clinic physician unknown [facility] - Clinic physician unknown Bharath Toro MD ~ THIS REPORT FOR: //name// [facility] ED Test Date: 2019-05-14 Test Time: 05:04:47 Pat Name: JAKUB GAXIOLA Department: Room: Gender: F Data Analyst: LÓPEZ : 1970 Requested By: Twin Smallwood Order Number: [id number] MD: Bharath Toro Measurements Intervals [place] Rate: 96 P: 71 TX: 176 QRS: 50 QRSD: 96 T: 155 QT: 373 QTc: 472 Interpretive Statements Sinus rhythm Nonspecific repol abnormality, diffuse leads Baseline wander in lead(s) V5 Compared to ECG 05/13/2019 14:18:48 Early repolarization now present Electronically Signed On 05-14-2019 9:57:44 CDT by Bharath Toro [email or web address] <ELECTRONICALLY SIGNED> By: Bharath Toro MD 05/14/19 0957 0504 0504 Bharath Toro MD /[facility]
== END 2019-05-14 09:25 | disposition home or self-care (01) ==
LOC: ER 04:44
PROVIDERS: Emergency Medicine
DX: R56.9 Unspecified convulsions (principal); R41.82 Altered mental status, unspecified; E10.22 Type 1 diabetes mellitus with diabetic chronic kidney disease; N18.6 End stage renal disease; Z99.2 Dependence on renal dialysis; Z85.3 Personal history of malignant neoplasm of breast; Z79.899 Other long term (current) drug therapy; Z79.82 Long term (current) use of aspirin; Z79.4 Long term (current) use of insulin; Z88.8 Allergy status to other drugs, medicaments and biological substances